=== PATIENT | female | born 1950 | race Caucasian/White ===

== ENCOUNTER → 2025-01-08 | Outpatient (CLI) | payer MEDICARE ==
[~2025-01-08] MED LIST: CONEST1.25 PO; CYAN1000I IM; ERGO50000 PO; HYDR1TAB94 PO; Ibuprofen Ib200 MG PO; LEVSOD50 PO; LIOT25 PO; TRAM50 PO; TRIA80TC TOP
== END ==
LOC: LAB SHORT 10:38 → LAB 10:38
DX: L97.921 Non-pressure chronic ulcer of unspecified part of left lower leg limited to breakdown of skin (principal)
CPT/HCPCS: 87070; 87077; 87186; 87205